=== PATIENT | female | born 1975 | race Two or more races ===

== ENCOUNTER 2019-05-17 20:11 | Emergency (ER) | payer BC, OTHER ==
[~2019-05-17] VITALS: Ht 165.1 cm; Wt 70.3 kg
--- NOTE | 2019-05-17 20:16 | NUR ---
CLAYTON GREGG AT BEDSIDE FOR EKG
[2019-05-17] MEDS ORDERED: LORAZEPAM INJ 2 MG/ML VIAL ONE (20:36)
--- NOTE | 2019-05-17 20:48 | NUR ---
ESTELITA DTR FOR C/O CP X 3 HRS RADIATING TO THE BACK. ASSOCIATED W/ SOB RECEIVED NITRO SL OPEN SOAPER TENDER . NO EFFECT. DENIES DIZZINESS, WEAKNESS. AOX4, AMBULATORY, VSS, RR EVEN AND UNLABORED. NO ACUTE DISTRESS NOTED. SKIN WARM, DRY, INTACT. READY FOR EVAL.
[2019-05-17 20:50] LABS: BASOPHILS # (AUTO) 0.1 /CMM (0.0-0.2); BASOPHILS % (AUTO) 0.8 % (0.0-2.0); EOSINOPHILS % (AUTO) 1.1 % (0.0-6.0); HEMATOCRIT 41 % (33-45); HEMOGLOBIN 13.6 g/dL (11.5-14.8); LYMPHOCYTES # (AUTO) 2.7 /CMM (0.8-4.8); LYMPHOCYTES % (AUTO) 37.4 % (20.0-44.0); MEAN CORPUSCULAR HGB CONC 33 g/dl (31.0-36.0); MEAN CORPUSCULAR VOLUME 89 fL (82-100); MONOCYTES # (AUTO) 0.3 /CMM (0.1-1.30); NEUTROPHILS # (AUTO) 4.1 /CMM (1.8-8.9); NEUTROPHILS % (AUTO) 56.7 % (43.0-81.0); PLATELET COUNT (AUTO) 215 /CMM (150-450); RED BLOOD CELL COUNT(AUTO) 4.61 MIL/uL (4.0-5.2); WHITE BLOOD COUNT (AUTO) 7.2 K/uL (4.3-11.0)
[2019-05-17] MEDS ORDERED: LORAZEPAM INJ 2 MG/ML VIAL IV ONE (21:00)
[2019-05-17 21:06] LABS: CALCIUM, SERUM 8.9 mg/dL (8.5-10.1); CARBON DIOXIDE 28 mmol/L (21-32); CHLORIDE 104 mmol/L (98-107); CREATININE 0.6 mg/dL (0.6-1.3); GLUCOSE 90 mg/dL (74-106); POTASSIUM 3.8 mmol/L (3.5-5.1); SODIUM SERUM 140 mmol/L (136-145); UREA NITROGEN, BLOOD 15 mg/dL (7-18)
--- NOTE | 2019-05-17 21:34 | NUR ---
PT STATES FEELING MUCH BETTER. AWARE
--- NOTE | 2019-05-17 22:07 | NUR ---
Patient discharged to home in stable condition. Written and verbal after care instructions given. Patient verbalizes understanding of instruction.IV removed. Catheter intact and site benign. Pressure and 4x4 applied to site. No bleeding noted.
[2019-05-17 22:08] VITALS: BP 141/88
== END 2019-05-17 22:08 | disposition home or self-care (01) ==
LOC: ER 20:14
DX: R07.89 Other chest pain (principal); F41.9 Anxiety disorder, unspecified
CPT/HCPCS: 36415; 71045; 80048; 84484; 85025; 93005 ×2; 96374; 99285; J2060